=== PATIENT | female | born 1975 | race Asian ===

== ENCOUNTER 2019-06-21 08:17 | Day surgery (SDC) | payer BC, OTHER ==
[2019-06-19 18:07] VITALS: BMI 32.4
--- NOTE | 2019-06-20 18:50 | HP ---
DATE OF ADMISSION: 06/21/2019 ADMISSION DIAGNOSIS: Pansinusitis, chronic with polyps. HISTORY OF PRESENT ILLNESS: This 44-year-old female has a long history of nasal and sinus problems which have failed to improve with more appropriate medical therapy. She does have a history of seasonal allergies as well as history of nasal polyps. She has been having headache, nasal congestion, sinus pain and pressure, as well as tooth pain and anosmia. She has had also mild intermittent cough. She has been treated with antihistamines, nasal steroid sprays, as well as Singulair and oral steroids. She has also been on antibiotics. She has failed to improve with appropriate medical therapy. She is now admitted for endoscopic sinus surgery. PAST MEDICAL HISTORY: Primary medical doctor is Richie Amin MD. The patient does report a history of sinus problems as well as nasal allergies. PAST SURGICAL HISTORY: Significant for sections x2. She has not had any problem with anesthesia. BLEEDING HISTORY: Negative. FAMILY HISTORY: Negative for bleeding or anesthesia problems. PHYSICAL EXAMINATION: General: Patient is a well-developed female in no distress. HEENT: Head is normal. Eyes are clear. Ears are unremarkable. The oral cavity and oropharynx are unremarkable. Tonsils are minimally enlarged. The nasal exam shows deviation of the septum. She does have polyps present bilaterally as well as polypoid degeneration of the middle turbinates. Polyps are present in both middle meatuses and sphenoethmoid recesses. DATA: Preop labs are pending. CT scan of the paranasal sinuses performed at [facility] on January 23, 2019, demonstrates chronic pansinusitis. There is mild deviation of the septum to the right. Ethmoid air cells are almost completely opacified. The maxillary sinuses are totally opacified on the right and partially opacified on the left. There is also almost total opacification of the left sphenoid sinus and partial opacification of the right, and there is also partial opacification of the frontal sinuses, mainly on the right. Maxillary ostia and ethmoid infundibulum are obstructed bilaterally, as well as the frontoethmoid and sphenoethmoid recesses. There is an opacified, moderate-size edwina bullosa on the right side, as well as intranasal densities consistent with nasal polyps. IMPRESSION: Chronic pansinusitis with anosmia and polyps, failure to improve with appropriate medical therapy. PLAN: Endoscopic sinus surgery to adjust ethmoid, maxillary, frontal, and sphenoid sinuses; resection of right edwina bullosa, and nasal polypectomy under general anesthesia. INFORMED CONSENT: Patient and her understand the indications, alternatives, nature of risks and benefits of proposed surgery, potential complications including, but not limited to, anesthesia, bleeding, infection, recurrence, numbness, hole in the septum, reduced sense of smell, persistent. Eye injury and brain injury were discussed in details. She understands and accepts these risks and wishes to proceed with surgery. Questions were answered fully. YON SCOTT M.D. [facility]/[id number]
[2019-06-21] MEDS ORDERED: LIDOCAINE 1%-EPI 1:100,000 30 ML MDV IJ ONE (10:58)
--- NOTE | 2019-06-21 10:58 | HP ---
History & Physical Update - History History: No Change - Physical Physical: No Change - Assessment Assessment: No Change - Plan Plan: No Change
--- NOTE | 2019-06-21 11:00 | OP ---
Operative Note - Note: Operative Date: 06/21/19 (73298) Pre-Operative Diagnosis: chronic pansinusitis with polyposis and anosmia Operation: bilateral endoscopic ethmoidectomy, anterior and posterior. bilateral endoscopic maxillary antrostomy with removal of tissue. bilateral endoscopic frontal sinus exploration. bilateral endoscopic sphenoidotomy. image guidance. endoscopic nasal polypectomy, extensive. right edwina bullosa resection, endoscopic. adenoid cauterization Findings: chronic pansinusitis with polyps, bilateral middle meatal and sphenoethmoid polyps large right edwina bullosa with polyps adenoid hypertrophy Post-Operative Diagnosis: Same as Pre-op Surgeon: Marshal Dodson Anesthesiologist/CREDIT ADMINISTRATION OFFICER: Brenna Swift Anesthesia: General Specimens Removed: left nasal polyps and ethmoid tissue, left maxillary sinus tissue. right middle turbinate, ethmoid and polyp tissue, right maxilllary sinus tissue Estimated Blood Loss (mls): 25 Blood Volume Replaced (mls): 0 Operative Report Dictated: Yes
[2019-06-21] MEDS ORDERED: PROPOFOL 20 ML ONE (11:02)
[2019-06-21] MEDS ORDERED: MIDAZOLAM HCL 2 MG/2 ML SINGLE DOSE VIAL ONE (11:02)
[2019-06-21] MEDS ORDERED: ROCURONIUM BROMIDE 50 MG/5 ML SYRINGE ONE (11:02)
[2019-06-21] MEDS ORDERED: LIDOCAINE HCL/PF 2% SDV 5ML VIAL ONE (11:02)
[2019-06-21] MEDS ORDERED: COCAINE HCL 4% TOPICAL SOLUTION 4 ML BOTTLE TP ONE (11:20)
[2019-06-21] MEDS ORDERED: DEXAMETHASONE SOD PHOSPHATE 4 MG/1 ML VIAL ONE (11:50)
[2019-06-21] MEDS ORDERED: LIDOCAINE 1%/EPI 1:100000 (20 ML MULTI DOSE VIAL) IJ ONE (12:10)
[2019-06-21] MEDS ORDERED: GLYCOPYRROLATE 0.2 MG/1 ML VIAL ONE (13:10)
[2019-06-21] MEDS ORDERED: NEOSTIGMINE METHYLSULFATE 0.5 MG/ML - 10 ML MDV ONE (13:10)
[2019-06-21] MEDS ORDERED: oxyCODONE HCL 5 MG TABLET PO PRN (13:35)
[2019-06-21] MEDS ORDERED: ONDANSETRON 4 MG/2 ML VIAL IVPUSH PRN (13:43)
[2019-06-21] MEDS ORDERED: ACETAMINOPHEN 1000 MG/100 ML VIAL (NON FORMULARY) IVPB ONE (13:43)
[2019-06-21] MEDS ORDERED: LACTATED RINGERS SOLUTION 1,000 ML IV SCH (13:45)
[2019-06-21 15:44] VITALS: TEMP 97.9
[2019-06-21 17:24] VITALS: BP 133/79; PULSE 83
--- NOTE | 2019-06-28 09:23 | PATH ---
Surgical Pathology Report Patient Name: JAYLIN ROBERTS [facility]. Rec. #: [id number] /Age/Gender: 1975 (Age: 44) / F Account: [id number] Location: [facility] SURGICAL Taken: 06/21/2019 Received: 06/21/2019 Reported: 06/28/2019 Physicians: Marshal Dodson M.D. Specimen(s) Received A: LEFT NASAL POLYP AND ETHMOID TISSUE B: LEFT MAXILLARY TISSUE C: RIGHT MIDDLE TURBINATE TISSUE/ETHMOID TISSUE AND POLYPS D: RIGHT MAXILLARY TISSUE E: RIGHT AND LEFT ETHMOID TISSUE Clinical History Chronic frontal sinus Final Diagnosis A. LEFT NASAL POLYPS AND ETHMOID TISSUE, EXCISION: INFLAMMATORY POLYPS AND CHRONIC SINUSITIS. B. LEFT MAXILLARY TISSUE, EXCISION: INFLAMMATORY POLYP AND CHRONIC SINUSITIS. C. RIGHT MIDDLE TURBINATE TISSUE/ETHMOID TISSUE AND POLYPS, EXCISION: INFLAMMATORY POLYP AND CHRONIC SINUSITIS. D. RIGHT MAXILLARY TISSUE, EXCISION: INFLAMMATORY POLYP AND CHRONIC SINUSITIS. E. RIGHT AND LEFT ETHMOID TISSUE, EXCISION: CHRONIC SINUSITIS. Electronically Signed Krista Vaughn M.D. Gross Description A. Received in formalin, labeled "left nasal polyp and ethmoid tissue" is a 2 x 1.8 x 0.3 cm aggregate of gutierres, polypoid, mucoid tissue. Entirely submitted in one cassette. B. Received in formalin, labeled "left maxillary tissue" is a 1.8 x 1 x 0.3 cm aggregate of gutierres and brown tissue. Entirely submitted in one cassette. C. Received in formalin, labeled "right middle turbinate, ethmoid, tissue, and polyps" is a 2.5 x 1.7 x 0.4 cm aggregate of leung, gutierres, polypoid, tissue admixed with bony tissue. Entirely submitted in two cassettes following decalcification of bony tissue (#2). D. Received in formalin, labeled "right maxillary tissue" is a 1.7 x 1 x 0.4 cm aggregate of light gutierres tissue. Entirely submitted in one cassette. E. Received in formalin, labeled "right and left ethmoid tissue" is a 2 x 1.5 x 0.2 cm portion of gutierres-brown and mucoid tissue. Entirely submitted in one cassette. AE/06/23/2019 ebram/06/23/2019
--- NOTE | 2019-07-25 20:15 | OP ---
DATE OF OPERATION: 06/21/2019 PREOPERATIVE DIAGNOSIS: Chronic pansinusitis with polyposis and anosmia. POSTOPERATIVE DIAGNOSIS: Chronic pansinusitis with polyposis and anosmia. PROCEDURE: 1. Bilateral endoscopic ethmoidectomy, anterior and posterior. 2. Bilateral endoscopic maxillary antrostomy with removal of tissue. 3. Bilateral endoscopic frontal sinus exploration. 4. Bilateral endoscopic sphenoidotomy. 5. Image guidance. 6. Endoscopic nasal polypectomy, extensive. 7. Right edwina bullosa resection, endoscopic. 8. Adenoid cauterization. SURGEON: Marshal Dodson MD ANESTHESIOLOGIST: Brenna Swift MD ANESTHESIA: General via endotracheal tube. INDICATIONS: This 44-year-old female has had longstanding nasal and sinus problems, which had failed to improve with appropriate medical therapy. She had significant obstruction, anosmia, and evidence of chronic sinusitis. She had been on oral antibiotics as well as oral and topical steroid medications. Examination demonstrated significant polyps with obstruction. CT scan demonstrated bilateral chronic pansinusitis with nasal polyposis. She also had anosmia. She is now brought to surgery for treatment. FINDINGS: Chronic pansinusitis with polyps, bilateral middle meatal and sphenoid ethmoidal polyps, large right edwina bullosa with polyps, adenoid hypertrophy. PROCEDURE: Patient was brought to the operating room and placed in the operating table in supine position. General endotracheal anesthesia was induced to a satisfactory level. She was prepped and draped in the usual fashion for surgery. CT scan data was loaded into [employer] image guidance system. The system was registered and it was used intermittently throughout the case in order to identify anatomic landmarks and to guide surgical dissection. Bilateral pledgets containing cocaine 4% were placed in the nasal cavities. Bilateral pledgets containing cocaine 4% were placed in the nasal cavities. Visible polyps were injected with lidocaine 1% with epinephrine 1:100,000. Significant nasal polyps were identified and these were on the left side and the right, grasped with straight and upbiting forceps and removed. The middle turbinates were identified and injected. The lateral nasal medeiros were also injected. Additional packing was placed. The nasopharynx was identified and mild to moderate adenoid hypertrophy was noted. Cauterization under direct visualization was performed with the suction cautery. Visible shrinkage occurred. On the left side, anterior and then posterior ethmoidectomy were performed with the ethmoid forceps and the [employer] microdebrider. The lamina papyracea and the fovea ethmoidalis were identified and preserved. Anterior and then posterior ethmoidectomy was performed. The base of the sphenoid sinus was identified. The sphenoid sinus was then opened on the left side. The left maxillary antrostomy was then created with the up and backbiting forceps. Significant disease tissue was identified and removed with giraffe forceps and sent to Pathology. Finally, the left frontal sinus was explored, a 70-degree scope was utilized and anteriormost ethmoid cells opened. Frontal recess was dissected, polypoid tissue was removed, and the frontal ostium was identified and its patency confirmed with passage of the frontal ostium seeker. Attention was then turned to the right paranasal sinuses after the polyps were removed, and the injections were performed. The edwina bullosa on the right was incised with a sickle knife and then incised with the scissors. The lateral was removed. Polyps were found within the edwina bullosa. The remnant was cauterized. Anterior and then posterior ethmoidectomy was then performed on the right side using the ethmoid forceps and the [employer] microdebrider. The lamina papyracea and the fovea ethmoidalis were preserved. Posterior ethmoid cells were then treated in a similar fashion. The base of the sphenoid sinus was identified. Sphenoidotomy was created and some thick mucus removed. Attention was then turned toward the right maxillary sinus. Natural ostium was sounded. The middle meatal antrostomy was then created with the forceps. Diseased tissue was removed utilizing the 70-degree scope and the giraffe forceps. Next, the right frontal sinus was addressed. The anteriormost ethmoid cells were removed. Frontal recess was visualized and polypoid tissue was removed. The frontal ostium was identified and again the frontal seeker passed into the frontal sinus. Final examination demonstrated open sinuses, a resected right edwina bullosa, and cauterized adenoid tissue without residual obstruction. NasoPore packing was placed in the ethmoid cavities. Inferior nasal packing was placed. Patient was then awakened from general anesthesia and transferred to the PACU in stable condition. Estimated blood loss was 25 mL. She received crystalloid during the procedure. There was no blood transfusion. There were no complications. Specimens sent to pathology included left nasal polyps and ethmoid tissue, left maxillary sinus tissue, right middle turbinate and ethmoid polyp tissue, right maxillary sinus tissue. MARSHAL DODSON M.D. [facility]/[id number]
== END 2019-06-21 16:30 | disposition home or self-care (01) ==
LOC: JASU-SURG 08:17
PROVIDERS: ATTEND Otolaryngology
PROC: 09DV4ZZ Extraction of Left Ethmoid Sinus, Percutaneous Endoscopic Approach (ICD-10-PCS; 2019-06-21)
PROC: 09DU4ZZ Extraction of Right Ethmoid Sinus, Percutaneous Endoscopic Approach (ICD-10-PCS; 2019-06-21)
PROC: 8E09XBZ Computer Assisted Procedure of Head and Neck Region (ICD-10-PCS; 2019-06-21)
PROC: 0C5 Mouth and Throat, Destruction (ICD-10-PCS; 2019-06-21)
PROC: 8E09XBZ Computer Assisted Procedure of Head and Neck Region (ICD-10-PCS; principal; 2019-06-21 09:30)
DX: J32.4 Chronic pansinusitis (principal); J33.8 Other polyp of sinus; R43.0 Anosmia; J35.2 Hypertrophy of adenoids
CPT/HCPCS: 84703; 88304-TC; 94760; J0131

== ENCOUNTER 2022-08-16 09:15 | Emergency (ER) | payer OTHER ==
[2022-08-16 09:24] VITALS: PULSE 95; TEMP 98.3; BMI 30.2
[2022-08-16] MEDS ORDERED: MAGNESIUM SULF 50% (8.12 MEQ/2 ML-1 GM VIAL) IVPB ONE (09:45)
[2022-08-16] MEDS ORDERED: methylPREDNISolone NA SUCC 125 MG/2 ML VIAL IVPUSH ONE (09:46)
[2022-08-16] MEDS ORDERED: ONDANSETRON 4 MG/2 ML VIAL IVPUSH ONE (09:47)
[2022-08-16] MEDS ORDERED: MAG HYDROX/AL HYDROX/SIMETH -MYLANTA- ORAL SUSPENSION PO ONE (09:47)
[2022-08-16] MEDS ORDERED: SODIUM CHLORIDE 0.9% 500 ML INFUS.BAG IV ONE (09:47)
[2022-08-16] MEDS ORDERED: FAMOTIDINE 20 MG/50 ML IVPB 20 MG/50 ML MG IVPB ONE ×2 (09:47→10:10)
[2022-08-16] MEDS ORDERED: MAGNESIUM 1GM/D5W - 1 GM/100 ML IVPB IVPB ONE (10:01)
[2022-08-16] MEDS ORDERED: methylPREDNISolone NA SUCC 125 MG/2 ML VIAL ONE (10:01)
[2022-08-16 10:07] LABS: VENOUS BASE EXCESS 1.3 mmol/L (-2-2); VENOUS O2 SATURATION 67.5 % (70-80); VENOUS PCO2 40.7 mmHg (38-52); VENOUS PH 7.421 (7.310-7.410)
[2022-08-16] MEDS: ALBUTEROL SO4 2.5/IPRATROPIUM 0.5 INH SOL 3 ML VIAL.NEB. NEB SCH ×2 (10:09→10:23)
[2022-08-16] MEDS ORDERED: ONDANSETRON 4 MG/2 ML VIAL ONE (10:10)
[2022-08-16 10:28] LABS: CALCIUM 9.1 mg/dL (8.5-10.1)
[2022-08-16 10:29] LABS: ALBUMIN 3.5 g/dl (3.4-5.0); BLOOD UREA NITROGEN 6.9 mg/dL (7-18); MAGNESIUM 2.3 mg/dL (1.8-2.4)
[2022-08-16 10:32] LABS: CREATININE 0.6 mg/dL (0.55-1.3)
[2022-08-16 10:34] LABS: BILIRUBIN,TOTAL 0.4 mg/dL (0.2-1); TOT PROT 7.8 g/dl (6.4-8.2)
[2022-08-16 10:36] LABS: INR 1.06 (0.83-1.09); PROTHROMBIN TIME (PATIENT) 12.2 SEC (9.7-13.0)
[2022-08-16 10:39] LABS: ACTIVATED PTT 33.9 SECONDS (25.2-36.5)
[2022-08-16] MEDS ORDERED: MAG HYDROX/AL HYDROX/SIMETH 30 ML UNIT-DOSE CUP ONE (11:03)
[2022-08-16 11:29] LABS: EOS % 10.2 % (0-4.5); HEMATOCRIT 32.4 % (32.4-45.2); HEMOGLOBIN 9.9 GM/dL (10.7-15.3); MCHC 30.5 g/dl (32.0-36.0); MEAN CELL VOLUME 57.4 fl (80-96); MEAN PLT VOLUME 8.3 fl (7.5-11.1); MONO % 5.9 % (3.8-10.2); NEUT % 54.9 % (42.8-82.8); PLATELET COUNT 539 10^3/uL (134-434); RBC 5.64 M/mm3 (3.60-5.2); RDW 20.5 % (11.6-15.6)
[2022-08-16 11:52] LABS: PH,URINE 7.5 (5.0-8.0); URINE APPEARANCE CLEAR; URINE BILIRUBIN NEGATIVE (NEGATIVE); URINE COLOR YELLOW; URINE GLUCOSE (UA) NEGATIVE (NEGATIVE); URINE KETONE NEGATIVE (NEGATIVE); URINE LEUK ESTERASE NEGATIVE (NEGATIVE); URINE NITRITE NEGATIVE (NEGATIVE); URINE PROTEIN NEGATIVE (NEGATIVE); URINE UROBILINOGEN 0.2 mg/dL (0.2-1.0)
[2022-08-16 12:35] LABS: MCH 17.5 pg (25.7-33.7)
[2022-08-16 12:40] VITALS: BP 122/85; RESP 20
[2022-08-16 14:42] LABS: ANISOCYTOSIS 1+; MACROCYTOSIS 0; PLATELET ESTIMATE NORMAL
[2022-08-16 15:20] LABS: N-TERMINAL BNP 20.2 pg/ml (5-125)
== END 2022-08-16 13:15 | disposition home or self-care (01) ==
LOC: JER 09:15
PROC: 3E033GC Introduction of Other Therapeutic Substance into Peripheral Vein, Percutaneous Approach (ICD-10-PCS; principal; 2022-08-16)
PROC: 3E0F7GC Introduction of Other Therapeutic Substance into Respiratory Tract, Via Natural or Artificial Opening (ICD-10-PCS; 2022-08-16)
DX: U07.1 COVID-19 (principal)
CPT/HCPCS: 0241U-QW; 36415; 71046-TC-FY; 80053; 81003; 82803; 83690; 83735; 83880; 84484; 84703; 85025; 85610; 85730; 87086; 93005; 93010; 99285-25